=== PATIENT | female | born 1940 | race Caucasian/White ===

== ENCOUNTER 2018-07-04 05:54 | Inpatient (IN) | payer MEDICARE, OTHER ==
--- NOTE | 2018-07-04 06:31 | EDM.PDOC ---
<Alexsander Ribera - Last Filed: 07/04/18 06:20> ED HPI GENERAL MEDICAL PROBLEM - General Chief Complaint: Gastrointestinal Problem Stated Complaint: vomiting, diarrhea Time Seen by Provider: 07/04/18 06:20 Source of Information: Reports: Patient History Limitations: Reports: No Limitations - History of Present Illness INITIAL COMMENTS - FREE TEXT/NARRATIVE: Patient arrives this AM with complaints of vomiting and diarrhea since midnight. She denies any prior illness. Medical history includes [place]'s disease. She denies chest pain, SOB, headache, numbness or tingling, she does endorse chills. No additional complaints this morning. Systolic blood pressure in the 90's; patient states that can be normal for her. Onset: Today, Sudden Onset Date: 07/04/18 Onset Time: 00:00 Duration: Intermittent Location: Reports: Abdomen Associated Symptoms: Reports: Fever/Chills, Nausea/Vomiting Back Pain Score (Numeric/FACES): 10 - Related Data Allergies Allergy/AdvReac Type Severity Reaction Status Date / Time cefuroxime [From Ceftin] Allergy Itching Verified 07/04/18 06:08 codeine Allergy Other Verified 07/04/18 06:08 Penicillins Allergy Other Verified 07/04/18 06:08 Past Medical History Endocrine/Metabolic History: Reports: Other (See Below) Other Endocrine/Metabolic History: addisons disease Social & Family History - Tobacco Use Smoking Status *Q: Never Smoker ED ROS GENERAL - Review of Systems Review Of Systems: See Below Constitutional: Reports: Chills HEENT: Reports: No Symptoms Respiratory: Reports: No Symptoms Cardiovascular: Reports: No Symptoms Endocrine: Reports: No Symptoms GI/Abdominal: Reports: Abdominal Pain, Diarrhea, Vomiting : Reports: No Symptoms Musculoskeletal: Reports: No Symptoms Skin: Reports: No Symptoms Neurological: Reports: No Symptoms Psychiatric: Reports: No Symptoms Hematologic/Lymphatic: Reports: No Symptoms Immunologic: Reports: No Symptoms ED EXAM, GI/ABD - Physical Exam Exam: See Below Exam Limited By: No Limitations General Appearance: Alert, WD/WN, Mild Distress Eyes: Bilateral: Normal Appearance, EOMI Ears: Normal TMs Throat/Mouth: Normal Inspection, Normal Lips, Normal Teeth, Normal Gums, Normal Oropharynx, Normal Voice, No Airway Compromise Head: Atraumatic, Normocephalic Neck: Normal Inspection, Supple, Non-Tender, Full Range of Motion Respiratory/Chest: No Respiratory Distress, Lungs Clear, Normal Breath Sounds, No Accessory Muscle Use, Chest Non-Tender Cardiovascular: Normal Peripheral Pulses, Regular Rate, Rhythm, No Edema, No Gallop, No JVD, No Murmur, No Rub GI/Abdominal Exam: Normal Bowel Sounds, Soft, Non-Tender Back Exam: Normal Inspection, Full Range of Motion, NT Extremities: Normal Inspection, Normal Range of Motion, Non-Tender, Normal Capillary Refill, No Pedal Edema Neurological: Alert, Oriented, CN II-XII Intact, Normal Cognition, Normal Gait, Normal Reflexes, No Motor/Sensory Deficits Psychiatric: Normal Affect, Normal Mood Skin Exam: Warm, Dry, Intact, Normal Color, No Rash Lymphatic: No Adenopathy Course - Vital Signs Last Recorded V/S: Last Vital Signs Temp 37.2 C 07/04/18 06:08 Pulse 101 H 07/04/18 06:08 Resp 20 07/04/18 06:08 BP 92/63 07/04/18 06:08 Pulse Ox 94 L 07/04/18 06:08 - Orders/Labs/Meds Orders: Active Orders 24 hr Category Date Time Status Admission Status [Patient Status] [ADT] Routine ADT 07/04/18 08:40 Ordered Abdomen 2V AP Flat Upright [CR] Stat Exams 07/04/18 07:24 Taken CULTURE BLOOD [BC] Stat Lab 07/04/18 06:51 Received CULTURE BLOOD [BC] Stat Lab 07/04/18 06:57 Received Lactated Ringers [Ringers, Lactated] 1,000 ml Med 07/04/18 06:45 Active IV ASDIRECTED Sodium Chloride 0.9% [Saline Flush] Med 07/04/18 06:33 Active 10 ml FLUSH ASDIRECTED PRN Blood Culture x2 Reflex Set [OM.PC] Stat Oth 07/04/18 06:33 Ordered Saline Lock Insert [OM.PC] Routine Oth 07/04/18 06:33 Ordered Medication Orders Lactated Ringer's (Ringers, Lactated) 1,000 mls @ 150 mls/hr IV ASDIRECTED YOLANDA Last Admin: 07/04/18 07:03 Dose: 150 mls/hr Sodium Chloride (Saline Flush) 10 ml FLUSH ASDIRECTED PRN PRN Reason: Keep Vein Open Labs: Laboratory Tests 07/04/18 07/04/18 07/04/18 Range/Units 06:51 06:51 06:51 WBC 8.3 (4.0-10.0) x10^3/uL RBC 4.17 (4.00-5.50) x10^6/uL Hgb 13.3 (12.0-16.0) g/dL Hct 39.9 (33.0-47.0) % MCV 95.7 H (78.0-93.0) fL MCH 31.9 (26.0-32.0) pg MCHC 33.3 (32.0-36.0) g/dL RDW Coeff of Ronald 12.8 (10.0-15.0) % Plt Count 213 (130-400) x10^3/uL Neut % (Auto) 89.0 H (50.0-80.0) % Lymph % (Auto) 6.5 L (25.0-50.0) % Humphreys % (Auto) 3.5 (2.0-11.0) % Eos % (Auto) 1.0 (0.0-4.0) % Baso % (Auto) 0.0 L (0.2-1.2) % Sodium 145 (136-145) mmol/L Potassium 3.4 L (3.5-5.1) mmol/L Chloride 107 (98-107) mmol/L Carbon Dioxide 26 (21-32) mmol/L Anion Gap 15.4 (10-20) mmol/L BUN 26 H (7-18) mg/dL Creatinine 1.0 (0.55-1.02) mg/dL Est Cr Clr Drug Dosing 33.30 mL/min Estimated GFR (MDRD) 54 Glucose 92 (74-106) mg/dL Lactic Acid 3.0 H* (0.4-2.0) mmol/L Calcium 9.0 (8.5-10.1) mg/dL Corrected Calcium 9.32 (8.5-10.1) mg/dL Magnesium 1.6 L (1.8-2.4) mg/dL Total Bilirubin 1.2 H (0.2-1.0) mg/dL AST 18 (15-37) U/L ALT 22 (14-59) U/L Alkaline Phosphatase 86 (46-116) U/L C-Reactive Protein 0.9 (<=0.9) mg/dL NT-Pro-B Natriuret Pep 1193 H (<=450) pg/mL Total Protein 6.9 (6.4-8.2) g/dL Albumin 3.6 (3.4-5.0) g/dL Globulin 3.3 Albumin/Globulin Ratio 1.09 TSH, Ultra Sensitive 1.024 (0.358-3.74) uIU/mL Meds: Medications Generic Name Dose Route Start Last Admin Trade Name Freq PRN Reason Stop Dose Admin Lactated Ringer's 1,000 mls @ 150 mls/hr 07/04/18 06:45 07/04/18 07:03 Ringers, Lactated IV 150 mls/hr ASDIRECTED YOLANDA Administration Sodium Chloride 10 ml 07/04/18 06:33 Saline Flush FLUSH ASDIRECTED PRN Keep Vein Open Discontinued Medications Generic Name Dose Route Start Last Admin Trade Name Freq PRN Reason Stop Dose Admin Ondansetron HCl 4 mg 07/04/18 06:33 07/04/18 07:03 Zofran IVPUSH 07/04/18 06:34 4 mg ONETIME ONE Administration Departure - Departure Disposition: Refer to Observation Clinical Impression: Dehydration, Lactic acidosis, Hypomagnesemia - Discharge Information - My Orders Last 24 Hours: My Active Orders 07/04/18 07:24 Abdomen 2V AP Flat Upright [CR] Stat 07/04/18 08:40 Admission Status [Patient Status] [ADT] Routine - Assessment/Plan Last 24 Hours: My Active Orders 07/04/18 07:24 Abdomen 2V AP Flat Upright [CR] Stat 07/04/18 08:40 Admission Status [Patient Status] [ADT] Routine <BitzSundeep - Last Filed: 07/04/18 08:43> Departure - Departure Time of Disposition: 08:42 Condition: Good - Discharge Information *PRESCRIPTION DRUG MONITORING PROGRAM REVIEWED*: Not Applicable *COPY OF PRESCRIPTION DRUG MONITORING REPORT IN PATIENT ZAHRA: Not Applicable - Problem List Review Problem List Initiated/Reviewed/Updated: Yes - Assessment/Plan Admission H&P: Please use this note as an admission H&P Assessment:: Dehydration; Lactic Acidosis; Hypomagnesemia Plan: Case discussed with Dr. Feliciano. Sepsis criteria met, but presentation is viral. Will admit for fluids and see how she does. Anticipate possible discharge later today.
[2018-07-04] MEDS ORDERED: Sodium Chloride 0.9% 10 ML Syringe FLUSH PRN (06:33)
[2018-07-04] MEDS ORDERED: Ondansetron 4 MG/2 ML SDV IVPUSH ONE (06:33)
[2018-07-04] MEDS ORDERED: Lactated Ringers 1,000 ML IV SCH (06:45)
[2018-07-04 07:36] LABS: ANION GAP 15.4 mmol/L (10-20)
--- NOTE | 2018-07-04 08:43 | CR ---
[id number] RAD/RAD Abd Flat and Upright 2V Exam: RAD Abd Flat and Upright 2V Clinical Data: NAUSEA AND VOMITING COMPARISON: NO PREVIOUS SIMILAR EXAM IS AVAILABLE FINDINGS: There is no bowel obstruction or free air. There is no organomegaly or pathologic calcification. IMPRESSION: NO ACUTE PLAIN FILM ABNORMALITY. Hipolito Gomez MD 07/04/18 0840 Thank you for allowing us to participate in the care of your patient.
[2018-07-04] MEDS ORDERED: Loratadine 10 MG Tab PO PRN (09:06)
[2018-07-04] MEDS ORDERED: ALPRAZolam 0.25 MG Tab PO PRN (09:06)
[2018-07-04] MEDS ORDERED: Hydrocortisone 20 MG Tab PO ONE (09:11)
[2018-07-04] MEDS ORDERED: IPRATROPIUM PRN (09:15)
[2018-07-04] MEDS ORDERED: Ondansetron 4 MG Tab.DIS PO PRN (09:15)
[2018-07-04] MEDS ORDERED: Fludrocortisone 0.1 MG Tab PO SCH (09:15)
[2018-07-04] MEDS ORDERED: TOLTERODINE 2 MG PO SCH (09:15)
[2018-07-04] MEDS ORDERED: Acetaminophen 325 MG Tab PO PRN (09:15)
[2018-07-04] MEDS ORDERED: Hydrocortisone 20 MG Tab PO SCH (09:15)
[2018-07-04] MEDS ORDERED: Dextran 70/Hypromellose/PF Ophth Soln 0.9 ML UD EYEBOTH PRN (09:15)
[2018-07-04] MEDS ORDERED: Ibuprofen 200 MG Tab PO PRN (09:17)
[2018-07-04] MEDS ORDERED: Magnesium Sulfate/Water 2 GM in Premix Bag 1 BAG IV ONE (09:18)
[2018-07-04] MEDS ORDERED: Potassium Chloride Riders 20 MEQ in Premix Bag 1 BAG IV ONE (09:18)
[2018-07-04] MEDS ORDERED: Sodium Chloride 0.9% 1,000 ML IV SCH (09:30)
[2018-07-04] MEDS: Acyclovir 200 MG Cap PO SCH (11:03)
[2018-07-04] MEDS: Levothyroxine 75 MCG Tab PO SCH (11:04)
[2018-07-04] MEDS: Aspirin 81 MG Tab.EC PO SCH (11:04)
[2018-07-04] MEDS ORDERED: Ondansetron 4 MG/2 ML SDV IVPUSH PRN (15:30)
[2018-07-04] MEDS ORDERED: Dexamethasone 4 MG/ML SDV IVPUSH PRN (17:16)
[2018-07-04] MEDS: NS + KCl 20mEq/L 1,000 ML IV SCH (17:46)
--- NOTE | 2018-07-04 19:11 | HP ---
CHIEF COMPLAINT: Nausea, vomiting, and diarrhea. HISTORY OF PRESENT ILLNESS: This is a 78-year-old female who presented to the emergency room this a.m. with symptoms beginning at midnight. She was in around 6 a.m., was placed on observation as it was felt she may return home in a few hours. She has underlying adrenal insufficiency. She has already received over a liter of fluids, but has not had any good urine output, but every time she goes, she has a lot of stools, so no UA was collected. She has been incontinent of stool. She has vomited at least 3 times before coming in. She has had at least 2 incontinent bowel movements since this morning. She had a temp 102.4 around 9 a.m. frontal, but tympanic was 99. She has had no further fevers. She is not having any cough. No chest pain. No shortness of breath. No abdominal pain. She had x-rays, which did not show any bowel obstruction. She just feels weak and tired. She has been sleeping a lot. She woke up with a sore neck from her nap just now, but states she did not have a neck problem before. She just felt mildly sore and a mild headache. No trouble with vision. She is not confused. PAST MEDICAL HISTORY: Otherwise, her past history is significant for [place]'s disease since 2001, on steroids. She did get 40 mg of hydrocortisone in the ER. She also takes fludrocortisone. She also has GERD, hyperlipidemia, hypothyroidism, osteoporosis, overactive bladder on Detrol, scoliosis, osteoarthritis, history of TMJ. PAST SURGICAL HISTORY: Surgically, she has had tonsillectomy, TMJ surgery, hysterectomy, hernia repair, ganglion excision, foot surgery, , cataract surgery, dental implants, breast surgery, bladder repair, arthroscopy of the right knee, wrist surgery, adenoidectomy. SOCIAL HISTORY: She is . She lives at home with her . She is a nonsmoker, nondrinker. She actually drives the school bus. FAMILY HISTORY: Both parents are . She had a sister who had some heart valve problems. She has a son who had heart valve problems. She herself has no history of heart failure. REVIEW OF SYSTEMS: General: Outpatient-[facility], she had not had any recent weight gain or weight losses until this illness. She has felt warm, but she has not really felt fever or chills. HEENT: No sore throat. Cardiac: No chest pain. No palpitations. Respiratory: As stated in HPI. Abdomen: As stated in HPI. : She does not have any burning with urination or change in frequency. Musculoskeletal: No new low back pain. Otherwise, all systems reviewed and found to be negative unless otherwise stated. PHYSICAL EXAMINATION: Vital Signs: At the time of her exam in the hospital, her temperature was 98.7, pulse 90, blood pressure 98/60, respiratory rate 16, O2 of 95% on 2 L. General: She is in no acute distress. Heart: Regular with occasional extra beats. Lungs: Sounds are clear to auscultation bilaterally without crackles or wheezes. Abdomen: Positive bowel sounds. It is soft, nondistended, nontender. Extremities: Warm and dry. No edema. Mental Status: She is alert. She is orientated x3. Neck: Supple without lymphadenopathy. It had full range of motion. HEENT: Her pupils were equal, round, reactive to light. Her extraocular motor function was intact. LABORATORY WORK: White count normal 8.3, hemoglobin 13.3, platelets 213. Sodium 145, potassium 3.4, chloride 107, bicarb 26, BUN 26, creatinine 1, glucose 92, lactic acid 3, then down to 2.2, now 0.9, magnesium 1.6, bili 1.2, AST 18, ALT 22. CRP normal. Alk phos normal. ProBNP mildly elevated at 1193. Albumin 3.6. TSH 1.024. DIAGNOSTIC DATA: X-ray as stated in HPI, flat and upright. No bowel obstruction. ASSESSMENT AND PLAN: 1. Acute gastroenteritis likely due to viral illness. The patient has not had any recent antibiotic use other than some clindamycin a few months ago for dental work. We will treat with IV fluids and replace electrolytes. 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 We will increase her to 20 mg twice daily. We will have IV dexamethasone 1 mg to be given if needed. Unable to take p.o. 3. Hypokalemia. We will replace IV. She does have a diet ordered, but likely will not be eating, and when she does, we will start with broth and jello. 4. Diarrhea likely related to viral illness. Stools were reported to be brown, but we will check for Hemoccult and Clostridium difficile testing just to be thorough. Consider further workup for diarrhea if symptoms do not resolve. 5. Sepsis. Just baseline tachycardia and fever, but normal white count. We will check a UA, but antibiotics are on hold as no source of infection has been identified other than viral, which would not indicate antibiotics. 6. Underlying overactive bladder. We will hold her bladder medication at this time. 7. Recent rib injury. She is not even mentioning any of that pain today. She did get a hug that resulted in some rib discomfort. 8. Mild neck discomfort. She does have p.r.n. Tylenol and Motrin available. She had not currently taken any, but is going to take try dose of Motrin. 9. For DVT prophylaxis, I do expect this admission to be under 24 hours. Therefore, I have not ordered and I will keep her on observation status. I actually am surprisingly finding her to be a [id number], which I did not speak to the patient about, but I will check and confirm this as she is still quite active healthy individual. MKA: 07/04/2018 17:15:48 MODL: 07/04/2018 19:05:31 /[id number]
[2018-07-04] MEDS: Cyclobenzaprine 10 MG Tab PO SCH (20:15)
[2018-07-04] MEDS: Hydrocortisone 20 MG Tab PO SCH (20:15)
[2018-07-05] MEDS: NS + KCl 20mEq/L 1,000 ML IV SCH (00:59)
[2018-07-05 07:21] LABS: ANION GAP 10.5 mmol/L (10-20); CHLORIDE,CL 114 mmol/L (98-107); SODIUM,NA 144 mmol/L (136-145)
[2018-07-05] MEDS: Hydrocortisone 20 MG Tab PO SCH ×2 (07:45→19:28)
[2018-07-05] MEDS: Acyclovir 200 MG Cap PO SCH (07:45)
[2018-07-05] MEDS: Levothyroxine 75 MCG Tab PO SCH (07:45)
[2018-07-05] MEDS: Aspirin 81 MG Tab.EC PO SCH (07:45)
[2018-07-05] MEDS: Fludrocortisone 0.1 MG Tab PO SCH (07:53)
[2018-07-05] MEDS ORDERED: Fludrocortisone 0.1 MG Tab PO SCH (08:00)
[2018-07-05] MEDS ORDERED: Pantoprazole 40 MG Vial IVPUSH SCH (08:45)
--- NOTE | 2018-07-05 09:10 | PN ---
Progress Note for EASTON DENT Date: 07/05/2018 Room #: .204 HOSPITAL PROGRESS NOTE SUBJECTIVE: Hospital day #2; on a 78-year-old admitted for observation yesterday with nausea, vomiting, and diarrhea. Her nausea and vomiting have resolved. She has no stomach pain, but diarrhea has continued. She has been incontinent of stool including this morning. She did have Hemoccult-positive stool this morning, however, it was not black. She had described her stools as brown. Nurse reported that it was light brown. She has been afebrile, but feels warm. She is not short of breath. No chest pain, but she has been coughing and has some upper back pain, which is probably related to like fibromyalgia. This is going on even before this occurred. She had taken some clindamycin for dental work back in April, but other members of her family have been sick with similar illness including her grandson who has [place]'s who is currently being hospitalized for the same thing per her report. PHYSICAL EXAMINATION: Vital Signs: Temp 98.1, pulse 80, blood pressure 92/45, respiratory rate 18, O2 97% on 2 L. General: She is in no acute distress. Heart: Regular rate and rhythm. S1, S2 without murmur. Lungs: Sounds are clear to auscultation bilaterally without crackles or wheezes. Abdomen: Positive bowel sounds. Soft and nontender. Extremities: Warm and dry. No edema. Mental Status: She is alert and orientated x3. DIAGNOSTIC DATA: EKG done yesterday did show sinus rhythm, otherwise. UA done yesterday did show no infection. White count today 10.5, hemoglobin dropped slightly to 10.6, platelets 160. Sodium 144, potassium 4.5, chloride 114, bicarb 24, BUN 19, creatinine 0.8, calcium 7.7, Mag 2.5. ASSESSMENT AND PLAN: 1. Acute viral gastroenteritis some symptoms improving, but diarrhea continues. We will hold off on any Imodium until we have C diff tests returning. I will not start her on any oral and an antibiotics like vanco for the C diff as I do think that it is unlikely. However, if her white count continues to climb, we would consider that. 2. Hypokalemia, replaced IV. We will go ahead and stop IV fluids. 3. Underlying Teo's disease. She is on double dosed hydrocortisone. Endocrinology has been updated. 4. Hemoccult-positive stools with mild anemia that is possibly due to hemodilution. Will repeat a hemoglobin later today and give her some IV Protonix, although it could be more due to a colitis. We will also do inflammatory markers later. 5. Criteria met for sepsis, but source was likely viral gastroenteritis. No antibiotics have been given. 6. History of overactive bladder. 7. Recent rib injury and coughing. We will get some chest x-rays. We will get her on incentive spirometry. 8. For DVT prophylaxis, we will get her started on SCDs. PLAN: The patient is upgraded to acute cares. We will stop IV fluids. Monitor labs. IV Protonix and see how she does over the next 24-48 hours. Anticipating discharge at that point. MKA: 07/05/2018 08:46:51 MODL: 07/05/2018 09:03:17 /[id number]
--- NOTE | 2018-07-05 10:16 | CR ---
[id number] RAD/RAD Chest PA And Lateral EXAM: RAD Chest PA And Lateral INDICATION: COUGH. COMPARISON: April 2012. DISCUSSION: Cardiomediastinal silhouette is normal in size and contour. Bilateral and symmetric lung hyperinflation consistent with sequela of COPD. Bibasal and symmetric interlobular septal thickening, seen best on lateral view with small bilateral pleural effusions. Findings are consistent with mild sequela of fluid retention. IMPRESSION: Mild changes of fluid retention in the chest superimposed on changes of COPD, described above. Patricio Bedolla MD 07/05/18 1014 Thank you for allowing us to participate in the care of your patient.
[2018-07-05] MEDS: Acetaminophen/HYDROcodone 325-5 MG Tab PO PRN (14:46)
[2018-07-05] MEDS: Cyclobenzaprine 10 MG Tab PO SCH (19:28)
[2018-07-05] MEDS: Pantoprazole 40 MG Vial IVPUSH SCH (19:28)
[2018-07-06 07:06] LABS: CHLORIDE,CL 109 mmol/L (98-107); SODIUM,NA 141 mmol/L (136-145)
[2018-07-06 07:10] LABS: ANION GAP 12.8 mmol/L (10-20)
[2018-07-06] MEDS: Pantoprazole 40 MG Vial IVPUSH SCH (07:58)
[2018-07-06] MEDS: Hydrocortisone 20 MG Tab PO SCH (07:58)
[2018-07-06] MEDS: Levothyroxine 75 MCG Tab PO SCH (07:59)
[2018-07-06] MEDS: Fludrocortisone 0.1 MG Tab PO SCH (07:59)
[2018-07-06] MEDS: Acyclovir 200 MG Cap PO SCH (08:00)
[2018-07-06] MEDS: Lidocaine 5% 700 MG Patch TOP SCH (09:08)
[2018-07-06] MEDS ORDERED: Cyclobenzaprine 10 MG Tab PO PRN (10:16)
[2018-07-06] MEDS: Acetaminophen/HYDROcodone 325-5 MG Tab PO PRN (17:50)
--- NOTE | 2018-07-06 17:57 | PN ---
Progress Note for EASTON DENT Date: 07/06/2018 Room #: .204 SUBJECTIVE: This is hospital day #2 for acute care day #3 overall for acute viral gastroenteritis. The patient is feeling much better. She has not had any diarrhea since yesterday. She had some nausea yesterday, but none today. No stomach pain. Little bit of a headache yesterday. Did get 1 dose of Tylenol, but no fever or chills. She still has a left upper thoracic back pain which she has had off and on for years. She otherwise did have lab work which showed her liver enzymes to have increased significantly when they were normal on admission other than her bilirubin was slightly elevated at 1.2. She has no antibiotic use. She was taking only up to 4 Tylenol at home. PHYSICAL EXAMINATION: Vital Signs: Objectively, her temperature today is 98.1, pulse 87, blood pressure 114/80, respiratory rate 18, O2 of 93% on room air. Her lowest blood pressure was 87/47. General: She is in no acute distress. Heart: Regular rate and rhythm. LUNGS: Lung sounds are clear to auscultation bilaterally without crackles or wheezes. Abdomen: Has positive bowel sounds. Soft and nontender. Extremities: Warm and dry. No edema. Mental Status: She is alert and orientated x3. LABORATORY DATA: Lab work from today does show her white count is normal at 4.2, hemoglobin stable at 10.1, hemoglobin yesterday 10.1, platelets 157. INR yesterday 1.1. Sodium 141, potassium 3.8, chloride 109, bicarb 23, BUN 11, creatinine 0.6. Glucose 97, she did have at 222 last evening. Calcium 8.1. TIBC was 215, percent saturation was 16.7. Bilirubin up to 1.8, direct bilirubin 0.92, AST 526, ALT 338, alkaline phosphatase 335. CRP 25.9, ESR yesterday 41, albumin 2.5. ASSESSMENT AND PLAN: 1. Acute viral gastroenteritis symptoms, improving. 2. Acute hepatitis, unclear etiology. We will send off an JANINE and viral hepatitis testing, possibly it could be from low blood pressures and ischemia. Other considerations are medications, although she only received 1 dose of Motrin while she was here. 3. Hemoccult-positive stools. Her hemoglobin was stable. We will put her on oral Protonix. 4. Hypokalemia, replaced. 5. Underlying Teo's disease. We will put her back on her 20 mg total hydrocortisone a day. 6. History of overactive bladder. 7. Rib injury and upper back pain related to recent incident, though seems stable. Discussed that her chest x-ray looked okay. 8. DVT prophylaxis, she is on sequential compression devices. PLAN: At this point, the patient will continue on acute cares. Will get some lab tomorrow to trend her liver enzymes. Outpatient GI followup may be needed. We will get a right upper quadrant ultrasound. We will get her IV restarted, but I am going to hold off on further IV fluids as she is eating and drinking well at this point. She was also doing an even fluid balance yesterday, but overall was up 2 L. MKA: 07/06/2018 16:51:25 MODL: 07/06/2018 17:49:34 /[id number]
[2018-07-07] MEDS ORDERED: Pantoprazole 40 MG Tab.CR PO SCH (07:00)
[2018-07-07 07:14] LABS: ANION GAP 12.5 mmol/L (10-20); CHLORIDE,CL 109 mmol/L (98-107); SODIUM,NA 144 mmol/L (136-145)
[2018-07-07] MEDS: Fludrocortisone 0.1 MG Tab PO SCH (07:51)
[2018-07-07] MEDS: Lidocaine 5% 700 MG Patch TOP SCH (07:51)
[2018-07-07] MEDS: Levothyroxine 75 MCG Tab PO SCH (07:52)
[2018-07-07] MEDS: Acyclovir 200 MG Cap PO SCH (07:53)
--- NOTE | 2018-07-07 10:26 | US ---
[id number] US/US Abdomen Limited EXAM: LIMITED ABDOMINAL ULTRASOUND INDICATION: ELEVATED LIVER FUNCTION TESTS. COMPARISON: None. DISCUSSION: Small polyp within the gallbladder. No cholelithiasis, wall thickening or pericholecystic fluid. The liver is normal in size and echotexture. No mass or intrahepatic duct dilation is identified. The common bile duct is normal in diameter at 3.1 mm. Small pleural effusion. The right kidney and aorta are unremarkable. IMPRESSION: 1. No explanation for elevated liver enzymes. 2. Small gallbladder polyp. 3. Small right pleural effusion. Luke Saleem MD 07/07/18 1023 Thank you for allowing us to participate in the care of your patient.
[2018-07-07] MEDS ORDERED: Docusate Sodium 100 MG Cap PO ONE (12:32)
[2018-07-07] MEDS: Acetaminophen/HYDROcodone 325-5 MG Tab PO PRN (14:39)
--- NOTE | 2018-07-08 12:00 | DISCH ---
DATE OF OBSERVATION ADMISSION: 07/04/2018. PRIMARY DISCHARGE DIAGNOSES: 1. Acute viral gastroenteritis. Others in her family were also ill with the same illness. 2. Acute hepatitis, etiology unclear. JANINE pending. The patient possibly has a component of ischemic hepatitis. Blood pressures did drop into the 80s over 37 range briefly. LFTs improving. Ultrasound okay. Plan to trend LFTs as an outpatient. 3. Hemoccult-positive stools, but no evidence of gastrointestinal bleeding. The patient was given some Prilosec. She is not having any stomach pain. She is no longer using NSAIDs routinely. Hemoglobin was 9.9 on discharge. We will continue to monitor. 4. Hypokalemia, replaced IV and orally. 5. Underlying [place]'s disease. Did have an increase in her hydrocortisone during her stay, but she is back on her home dose doing well. 6. Overactive bladder. 7. Rib injury and upper back pain, doing well, working with PT. She is no longer requiring hydrocodone. This injury happened prior to her admission. REASON FOR ADMISSION: On the date of admission, this 78-year-old female presented to the ER with vomiting and diarrhea. She was incontinent of stool. She had multiple bowel movements. She was dehydrated. She was given IV fluids. She was given IV nausea medications. The diarrhea continued through the next day. She had previously taken some clindamycin for dental work. C. diff was tested and was negative. The patient subsequently has not had a bowel movement now for the past 2 to 3 days, but has been eating well and overall feeling better and ready for discharge. Yesterday, when LFTs were repeated, they were normal on admission. Her AST was up to 526, ALT 338, alkaline phosphatase 335. Today, bilirubin down from 1.8 to 1.6. AST 396, alkaline phosphatase 348, ALT 485. Discussion was had with GI Clinic. Her INR was normal at 1.0. Albumin was mildly low at 2.4. Overall, we could trend her LFTs and see how she does. If her autoimmune hepatitis panel returns positive or other concerns, we will refer her to the GI Clinic. She otherwise received no antibiotics during her stay. Her UA was normal without any evidence of infection. Lactic acid was 3 on admission, but trended down to 0.9. No source of infection found. Her magnesium was 1.6. She did receive some IV, it was mildly low at 1.7, and she could consider taking some magnesium on discharge as well. Otherwise, her iron was 36, TIBC 215, transferrin 200, percent saturation was 16.7. DISCHARGE PLAN AND INSTRUCTIONS: Follow up in the clinic with Dr. Feliciano on 07/14/2018. She will have a hepatic panel on Tuesday. She will do outpatient PT. PHYSICAL EXAMINATION: Vital Signs: Otherwise, discharge vitals include a temperature of 97.8, pulse 68, blood pressure 124/54, respiratory rate 20, O2 of 98% on room air. General: She is in no acute distress. Heart: Regular rate and rhythm. Lungs: Lung sounds do show a decreased air entry over the right lung base, otherwise no crackles or wheezes. Abdomen: Positive bowel sounds. Soft and nontender. Extremities: Warm and dry. No edema. Mental Status: Alert and orientated x3. MKA: 07/07/2018 12:56:43 MODL: 07/08/2018 11:41:34 /[id number]
== END 2018-07-07 14:45 | disposition home or self-care (01) | DRG 872 ==
LOC: VM.ED 05:54 → VM.MS 08:40 → OBSVTOIN 07-05 08:40
PROVIDERS: ADMIT Internal Medicine; ATTEND Internal Medicine
DX: A41.89 Other specified sepsis (principal); B17.9 Acute viral hepatitis, unspecified; E83.42 Hypomagnesemia; E27.1 Primary adrenocortical insufficiency; E87.2 Acidosis; A08.4 Viral intestinal infection, unspecified; E86.0 Dehydration; E87.6 Hypokalemia; K21.9 Gastro-esophageal reflux disease without esophagitis; E78.5 Hyperlipidemia, unspecified; E03.9 Hypothyroidism, unspecified; M81.0 Age-related osteoporosis without current pathological fracture; N32.81 Overactive bladder; D64.9 Anemia, unspecified; M41.9 Scoliosis, unspecified; M54.9 Dorsalgia, unspecified; M19.90 Unspecified osteoarthritis, unspecified site; Z66 Do not resuscitate; Z79.899 Other long term (current) drug therapy; Z88.8 Allergy status to other drugs, medicaments and biological substances; Z88.0 Allergy status to penicillin; Z87.828 Personal history of other (healed) physical injury and trauma
CPT/HCPCS: 36415; 51701; 71046; 74019; 76705; 80048; 80053; 80074; 81003; 82248; 82274; 82550; 82962; 83540; 83550; 83605; 83735; 83880; 84443; 84466; 85018; 85025; 85610; 85652; 86038; 86140; 87040; 87493; 93005; 96361; 96365; 96366; 96367; 96374; 96375; 97161-GP; 99284-GF; 99285; A9270-GY; C9113; G0378; J2405; J3475; J3480; J7030; J7120